=== PATIENT | male | born 1980 | race American Indian/Alaskan Native ===

== ENCOUNTER 2017-05-07 18:02 | Emergency (ER) | payer OTHER ==
[2017-05-07] MEDS ORDERED: SUBLIMAZE ONE (18:27)
[2017-05-07] MEDS ORDERED: MORPHINE IV ONE (18:30)
[2017-05-07] MEDS ORDERED: TORADOL IV ONE (18:30)
[2017-05-07] MEDS ORDERED: SUBLIMAZE IV ONE (18:30)
[2017-05-07] MEDS ORDERED: ZOFRAN IV ONE (18:31)
--- NOTE | 2017-05-07 18:32 | Emergency Department Report ---
ED Upper Extremity Inj HPI - General Chief Complaint: Shoulder Injury Stated Complaint: LEFT SHOULDER PAIN Time Seen by Provider: 05/07/17 18:29 Source: patient Mode of arrival: Ambulatory Limitations: No Limitations - History of Present Illness Initial Comments: 36 YO MALE WAS CARRYING HIS DAUGHTER WHEN HE SUDDENLY FELL ON HIS LEFT SHOULDER. HE C/O OF LEFT SHOULDER PAIN AND DEFORMITY MD Complaint: Injury to:: left, shoulder -: Sudden Other Extremity Injury: Fingers: Left, Shoulder: Left Other Injuries: none Handedness: right Severity scale (0 -10): 10 Improves With: medication Worsens With: movement of extremity Context: fall, direct blow, injury Associated Symptoms: denies other symptoms - Related Data Previous Rx's Medication Instructions Recorded Last Taken Type oxyCODONE /ACETAMINOPHEN [Percocet 2 tab PO Q6HR PRN #14 tablet 05/07/17 Unknown Rx 5/325] Allergies Allergy/AdvReac Type Severity Reaction Status Date / Time No Known Allergies Allergy Unverified 05/07/17 18:16 ED Review of Systems ROS: Stated complaint: LEFT SHOULDER PAIN Other details as noted in HPI Constitutional: denies: chills, fever Eyes: denies: eye pain, eye discharge, vision change ENT: denies: ear pain, throat pain Respiratory: denies: cough, shortness of breath, wheezing Cardiovascular: denies: chest pain, palpitations Endocrine: no symptoms reported Gastrointestinal: denies: abdominal pain, nausea, diarrhea Genitourinary: denies: urgency, dysuria Musculoskeletal: denies: back pain Skin: denies: rash, lesions Neurological: denies: headache, weakness, paresthesias Psychiatric: denies: anxiety, depression Hematological/Lymphatic: denies: easy bleeding, easy bruising ED Past Medical Hx - Past Medical History Previous Medical History?: No - Surgical History Past Surgical History?: No - Social History Smoking Status: Current Every Day Smoker Substance Use Type: Alcohol - Medications Home Medications: Home Medications Medication Instructions Recorded Confirmed Last Taken Type oxyCODONE /ACETAMINOPHEN [Percocet 2 tab PO Q6HR PRN #14 tablet 05/07/17 Unknown Rx 5/325] ED Physical Exam - General Limitations: No Limitations General appearance: alert, in distress - Head Head exam: Present: atraumatic, normocephalic - Eye Eye exam: Present: normal appearance, EOMI - ENT ENT exam: Present: mucous membranes moist - Neck Neck exam: Present: normal inspection, full ROM - Respiratory Respiratory exam: Present: normal lung sounds bilaterally. Absent: respiratory distress - Cardiovascular Cardiovascular Exam: Present: regular rate, normal rhythm. Absent: systolic murmur, diastolic murmur, rubs, gallop - GI/Abdominal GI/Abdominal exam: Present: soft, normal bowel sounds - Rectal Rectal exam: Present: deferred - Extremities Exam Extremities exam: Present: tenderness (LEFT SHOULDER, WITH DEFORMITY,) - Back Exam Back exam: Present: normal inspection - Neurological Exam Neurological exam: Present: alert, oriented X3, CN II-XII intact - Psychiatric Psychiatric exam: Present: normal affect, normal mood - Skin Skin exam: Present: warm, dry, intact, normal color. Absent: rash ED Course Vital Signs 05/07/17 05/07/17 05/07/17 18:16 19:25 19:40 Temperature 98.1 F Temperature [ 98.3 F Intra-Procedure ] Temperature [ Post-Procedure] Temperature [ 98.4 F Pre-Procedure] Pulse Rate 104 H Pulse Rate [ 96 H Intra-Procedure ] Pulse Rate [ Post-Procedure] Pulse Rate [Pre 85 -Procedure] Respiratory 20 Rate Respiratory 21 Rate [Intra- Procedure] Respiratory Rate [Post- Procedure] Respiratory 20 Rate [Pre- Procedure] Blood Pressure 161/93 Blood Pressure 136/78 [Intra- Procedure] Blood Pressure [Post-Procedure ] Blood Pressure 145/88 [Pre-Procedure] O2 Sat by Pulse 100 Oximetry [ Intra-Procedure ] O2 Sat by Pulse Oximetry [Post -Procedure] O2 Sat by Pulse 100 Oximetry [Pre- Procedure] 05/07/17 05/07/17 19:45 19:51 Temperature Temperature [ Intra-Procedure ] Temperature [ 98.4 F Post-Procedure] Temperature [ Pre-Procedure] Pulse Rate 90 Pulse Rate [ Intra-Procedure ] Pulse Rate [ 82 Post-Procedure] Pulse Rate [Pre -Procedure] Respiratory Rate Respiratory Rate [Intra- Procedure] Respiratory 19 Rate [Post- Procedure] Respiratory Rate [Pre- Procedure] Blood Pressure Blood Pressure [Intra- Procedure] Blood Pressure 145/89 [Post-Procedure ] Blood Pressure [Pre-Procedure] O2 Sat by Pulse Oximetry [ Intra-Procedure ] O2 Sat by Pulse 100 Oximetry [Post -Procedure] O2 Sat by Pulse Oximetry [Pre- Procedure] - Orthopedic Joint Reduction Joint #1 Consent Obtained: written consent Time Out Performed: Yes Side: left Joint Reduction Location: shoulder Analgesia: moderate sedation Shoulder Technique Used (if applicable): Milch Post-Reduction Neuro Exam: intact Post-Reduction Vascular Exam: intact Splint Applied: Yes Patient Tolerated Procedure: well ED Medical Decision Making - Radiology Data Radiology results: report reviewed (LEFT SHOULDER XRAY: ANTERIOR DISLOCATION OF THE GLENOHUMERAL JOINT, NO FRACTURE) Critical care attestation.: If time is entered above; I have spent that time in minutes in the direct care of this critically ill patient, excluding procedure time. ED Disposition Clinical Impression: Anterior dislocation of left shoulder Qualifiers: Encounter type: initial encounter Qualified Code(s): S43.015A - Anterior dislocation of left humerus, initial encounter Shoulder pain, acute Qualifiers: Laterality: left Qualified Code(s): M25.512 - Pain in left shoulder Disposition: DC-01 TO HOME OR SELFCARE Is pt being admited?: No Does the pt Need Aspirin: No Condition: Stable Instructions: Shoulder Dislocation (ED) Additional Instructions: PLEASE SEE DR SARABIA , CALL FOR AN APPOINTMENT. YOU MAY NEED PHYSICAL THERAPY Prescriptions: oxyCODONE /ACETAMINOPHEN [Percocet 5/325] 2 tab PO Q6HR PRN #14 tablet PRN Reason: Pain Referrals: CHARITO DURAN MD [Primary Care Provider] - 3-5 Days Time of Disposition: 19:50
[2017-05-07] MEDS ORDERED: DIPRIVAN 10 MG/ML IV ONE ×4 (18:46→19:40)
--- NOTE | 2017-05-07 20:13 | XRay Report ---
FINAL REPORT PROCEDURE: XR SHOULDER 2+V LT TECHNIQUE: Left shoulder, two views HISTORY: LEFT SHOULDER PAIN,DEFORMITY COMPARISON: No prior studies are available for comparison. FINDINGS: There is anterior dislocation of the left glenohumeral joint. No acute fracture is identified. Acromioclavicular joint appears intact. IMPRESSION: Anterior dislocation of the left glenohumeral joint
--- NOTE | 2017-05-07 21:04 | XRay Report ---
FINAL REPORT PROCEDURE: XR SHOULDER 2+V LT TECHNIQUE: Left shoulder, two views HISTORY: PAIN,POST REDUCTION COMPARISON: 05/07/2017 FINDINGS: There has been reduction of previously seen left shoulder dislocation. There may still be mild anterior subluxation of the humeral head relative to the glenoid. No acute fracture is visible. The acromioclavicular joint appears intact. IMPRESSION: There has been reduction of the left glenohumeral joint dislocation, with significantly improved alignment. There may be minimal anterior subluxation of the humeral head relative to the glenoid fossa; alternatively this appearance may be projectional.
[2017-05-07 21:59] VITALS: BP 121/84
== END 2017-05-07 21:10 | disposition home or self-care (01) ==
LOC: ED 18:02
DX: S43.015A Anterior dislocation of left humerus, initial encounter (principal); F17.200 Nicotine dependence, unspecified, uncomplicated; W22.8XXA Striking against or struck by other objects, initial encounter; Y93.89 Activity, other specified; Y99.8 Other external cause status; Y92.89 Other specified places as the place of occurrence of the external cause
CPT/HCPCS: 23650; 73030; 99283; J2704; J3010; 96374; J1885; J2270; J2405